=== PATIENT | male | born 1995 | race Caucasian/White ===

== ENCOUNTER 2020-10-18 15:12 | Emergency (ER) | payer OTHER ==
[~2020-10-18] VITALS: Ht 185.4 cm; Wt 91.0 kg
[2020-10-18] MEDS ORDERED: CLON1TAB23 MT (17:12)
[2020-10-18 17:19] VITALS: BP 131/78
== END 2020-10-18 17:19 | disposition home or self-care (01) ==
LOC: ER 15:12
DX: F41.9 Anxiety disorder, unspecified (principal); Z76.0 Encounter for issue of repeat prescription
CPT/HCPCS: 99283